=== PATIENT | male | born 1995 ===

== ENCOUNTER 2017-05-29 13:30 | Emergency (ER) | payer BC ==
[~2017-05-29] VITALS: Ht 175.3 cm; Wt 79.0 kg
[2017-05-29 13:34] VITALS: TEMP 36.5; Ht 175.3 cm; Wt 79.0 kg
[2017-05-29] MEDS ORDERED: ATOR-22 PO (14:13)
--- NOTE | 2017-05-29 15:03 | DIAGNOSTIC IMAGING REPORT ---
CHEST ONE VIEW PORTABLE CLINICAL HISTORY: 21 years-old Male presenting with sob . TECHNIQUE: Portable upright AP view of the chest was obtained. COMPARISON: None. FINDINGS: Cardiomediastinal silhouette normal. Lungs and pleural spaces clear. Osseous changes suggested in the right bony glenoid. No convincing evidence of fracture. Upper abdomen normal. IMPRESSION: 1. No acute cardiopulmonary disease. Electronically signed by: Wu Braxton M.D. 05/29/2017 3:02 PM Dictated Date/Time: 05/29/2017 3:01 PM
[2017-05-29 15:15] LABS: BASO % 0.2 %; BASO ABS # 0.01 K/uL (0-0.2); EOS ABS # 0.05 K/uL (0-0.5); HEMATOCRIT 43.2 % (42-52); HEMOGLOBIN 14.8 g/dL (14.0-18.0); IG# 0.01 K/uL (0.00-0.02); LYMPH % 27.9 %; LYMPH ABS # 1.35 K/uL (1.2-3.4); MEAN CELL VOLUME 93.5 fL (80-100); MEAN CORPUSCULAR HGB CONC 34.3 g/dl (32-36); MEAN PLATELET VOLUME 9.4 fL (7.4-10.4); MONO % 11.6 %; MONO ABS # 0.56 K/uL (0.11-0.59); NEUT % 59.1 %; NEUT ABS # 2.86 K/uL (1.4-6.5); PLATELET COUNT 250 K/uL (130-400); RED CELL DISTRIBUTION WIDTH CV 12.2 % (11.5-14.5); RED CELL DISTRIBUTION WIDTH SD 41.5 fL (36.4-46.3); WHITE BLOOD COUNT 4.84 K/uL (4.8-10.8)
[2017-05-29 15:29] LABS: POTASSIUM 3.9 mmol/L (3.5-5.1); SODIUM 137 mmol/L (136-145)
[2017-05-29 15:33] LABS: ALBUMIN 4.1 gm/dl (3.4-5.0); ALT/SGPT 28 U/L (12-78); AST/SGOT 32 U/L (15-37); BLOOD UREA NITROGEN 13 mg/dl (7-18); CALCIUM 8.9 mg/dl (8.5-10.1); CARBON DIOXIDE 29 mmol/L (21-32); CREATININE 0.97 mg/dl (0.60-1.40); GLUCOSE 112 mg/dl (70-99)
[2017-05-29 15:43] LABS: ALKALINE PHOSPHATASE 76 U/L (45-117); TOTAL PROTEIN 7.5 gm/dl (6.4-8.2)
[2017-05-29] MEDS ORDERED: LORA-741 PO (16:35)
[2017-05-29 16:43] VITALS: BP 120/55; PULSE 52; O2SAT 95
--- NOTE | 2017-05-29 16:58 | EMERGENCY ROOM VISIT NOTE ---
History Report prepared by Jose: Marva Mojica Under the Supervision of: Dr. Jayy Oliver D.O. First contact with patient: 14:13 Chief Complaint: ANXIETY Stated Complaint: LIGHTHEADED; DIZZY; ANXIETY History of Present Illness The patient is a 21 year old male who presents to the Emergency Room with complaints of worsening anxiety starting 3 weeks ago. The patient has a history of anxiety which he is usually able to manage without medications. Over the past 3 weeks, he has experienced palpitations, SOB, and lightheadedness when he goes to the gym. These symptoms are making him feel more anxious. He has these symptoms sometimes during the middle of his workout and sometimes while he is warming up. He has never had these symptoms before with going to the gym. The symptoms resolve after he returns home and relaxes. Over the past couple of days , he has been experiencing this even without going to the gym. He experienced these symptoms when going out with his friends this weekend. He denies any tingling in his hands or feet. Patient denies diabetes, hypertension, CAD, history of sudden at a young age, and smoking. Patient denies swelling of calves, history of immobilization or recent surgery, prior history of DVT, hemoptysis, history of malignancy, history of smoking, or control/ estrogen use. He traveled to [place] 1 month ago. He admits to alcohol use on the weekends. He denies any other drug use. He denies any thoughts of hurting himself or others. Source of History: patient Onset: 3 weeks ago Position: other (mental health) Quality: other (anxiety) Timing: worsening Modifying Factors (Worsening): other (going to the gym) Associated Symptoms: + SOB Note: Pt reports palpitations, lightheadedness. Review of Systems See HPI for pertinent positives & negatives. A total of 10 systems reviewed and were otherwise negative. Past Medical & Surgical Medical Problems: (1) High cholesterol Family History Hypertension Social History Smoking Status: Former Smoker Occupation Status: [employer] student Current/Historical Medications Scheduled Atorvastatin (Lipitor), 20 MG PO DAILY Lorazepam (Ativan), 0.5 MG PO TID Allergies Coded Allergies: No Known Allergies (Unverified , 05/29/17) Physical Exam Vital Signs Date Time Temp Pulse Resp B/P (MAP) Pulse Ox O2 Delivery O2 Flow Rate FiO2 05/29/17 16:43 52 16 120/55 95 05/29/17 15:08 51 16 133/66 97 Room Air 05/29/17 13:34 36.5 97 18 132/74 Room Air Physical Exam GENERAL: Sitting up in bed, alert, well appearing, well nourished, no distress, non-toxic EYE EXAM: normal conjunctiva. PERRL and EOM's grossly intact. OROPHARYNX: no exudate, no erythema, lips, buccal mucosa, and tongue normal and mucous membranes are moist NECK: supple, no nuchal rigidity, no adenopathy, non-tender LUNGS: Clear to auscultation. Normal chest wall mechanics HEART: no murmurs, S1 normal and S2 normal ABDOMEN: abdomen soft, non-tender, normo-active bowel sounds, no masses, no rebound or guarding. BACK: Back is symmetrical on inspection and there is no deformity, no midline tenderness, no CVA tenderness. SKIN: no rashes and no bruising UPPER EXTREMITIES: upper extremities are grossly normal. Radial pulses equal bilaterally. LOWER EXTREMITIES: No pitting edema. Calves equal bilaterally. NEURO EXAM: Normal sensorium, cranial nerves II-XII grossly intact, normal speech, no gross weakness of arms, no gross weakness of legs. Medical Decision & Procedures ER Provider Diagnostic Interpretation: Radiology results as stated below per my review and the radiologist's interpretation: CHEST ONE VIEW PORTABLE CLINICAL HISTORY: 21 years-old Male presenting with sob . TECHNIQUE: Portable upright AP view of the chest was obtained. COMPARISON: None. FINDINGS: Cardiomediastinal silhouette normal. Lungs and pleural spaces clear. Osseous changes suggested in the right bony glenoid. No convincing evidence of fracture. Upper abdomen normal. IMPRESSION: 1. No acute cardiopulmonary disease. Electronically signed by: Wu Braxton M.D. 05/29/2017 3:02 PM Dictated Date/Time: 05/29/2017 3:01 PM Laboratory Results 05/29/17 15:01 Red Blood Count 4.62, Mean Corpuscular Volume 93.5, Mean Corpuscular Hemoglobin 32.0, Mean Corpuscular Hemoglobin Concent 34.3, Mean Platelet Volume 9.4, Neutrophils (%) (Auto) 59.1, Lymphocytes (%) (Auto) 27.9, Monocytes (%) (Auto) 11.6, Eosinophils (%) (Auto) 1.0, Basophils (%) (Auto) 0.2, Neutrophils # (Auto ) 2.86, Lymphocytes # (Auto) 1.35, Monocytes # (Auto) 0.56, Eosinophils # (Auto ) 0.05, Basophils # (Auto) 0.01 05/29/17 15:00 Test 05/29/17 14:30 05/29/17 15:00 05/29/17 15:01 Urine Color YELLOW Urine Appearance TURBID (CLEAR) Urine pH 7.5 (4.5-7.5) Urine Specific [place] 1.022 (1.000-1.030) Urine Protein NEG (NEG) Urine Glucose (UA) NEG (NEG) Urine Ketones NEG (NEG) Urine Occult Blood NEG (NEG) Urine Nitrite NEG (NEG) Urine Bilirubin NEG (NEG) Urine Urobilinogen NEG (NEG) Urine Leukocyte Esterase NEG (NEG) Urine WBC (Auto) 0 /hpf (0-5) Urine RBC (Auto) 0-4 /hpf (0-4) Urine Hyaline Casts (Auto) 0 /lpf (0-5) Urine Epithelial Cells (Auto) 0-5 /lpf (0-5) Urine Bacteria (Auto) NEG (NEG) Urine Opiates Screen NEG (NEG) Urine Methadone, Qualitative NEG (NEG) Urine Barbiturates NEG (NEG) Urine Phencyclidine (PCP) Level NEG (NEG) Ur Amphetamine/Methamphetamine NEG (NEG) MDMA (Ecstasy) Screen NEG (NEG) Urine Benzodiazepines Screen NEG (NEG) Urine Cocaine Metabolite NEG (NEG) Urine Marijuana (THC) NEG (NEG) D-Dimer 230 ug/L FEU (0-500) Anion Gap 4.0 mmol/L (3-11) Est Creatinine Clear Calc Drug Dose 120.5 ml/min Estimated GFR () 128.8 Estimated GFR (Non- 111.1 BUN/Creatinine Ratio 13.2 (10-20) Calcium Level 8.9 mg/dl (8.5-10.1) Total Bilirubin 0.6 mg/dl (0.2-1) Direct Bilirubin 0.1 mg/dl (0-0.2) Aspartate Amino Transf (AST/SGOT) 32 U/L (15-37) Alanine Aminotransferase (ALT/SGPT) 28 U/L (12-78) Alkaline Phosphatase 76 U/L (45-117) Troponin I < 0.015 ng/ml (0-0.045) Total Protein 7.5 gm/dl (6.4-8.2) Albumin 4.1 gm/dl (3.4-5.0) Thyroid Stimulating Hormone (TSH) 0.725 uIu/ml (0.300-4.500) White Blood Count 4.84 K/uL (4.8-10.8) Red Blood Count 4.62 M/uL (4.7-6.1) Hemoglobin 14.8 g/dL (14.0-18.0) Hematocrit 43.2 % (42-52) Mean Corpuscular Volume 93.5 fL (80-100) Mean Corpuscular Hemoglobin 32.0 pg (25-34) Mean Corpuscular Hemoglobin Concent 34.3 g/dl (32-36) Platelet Count 250 K/uL (130-400) Mean Platelet Volume 9.4 fL (7.4-10.4) Neutrophils (%) (Auto) 59.1 % Lymphocytes (%) (Auto) 27.9 % Monocytes (%) (Auto) 11.6 % Eosinophils (%) (Auto) 1.0 % Basophils (%) (Auto) 0.2 % Neutrophils # (Auto) 2.86 K/uL (1.4-6.5) Lymphocytes # (Auto) 1.35 K/uL (1.2-3.4) Monocytes # (Auto) 0.56 K/uL (0.11-0.59) Eosinophils # (Auto) 0.05 K/uL (0-0.5) Basophils # (Auto) 0.01 K/uL (0-0.2) RDW Standard Deviation 41.5 fL (36.4-46.3) RDW Coefficient of Variation 12.2 % (11.5-14.5) Immature Granulocyte % (Auto) 0.2 % Immature Granulocyte # (Auto) 0.01 K/uL (0.00-0.02) Ethyl Alcohol mg/dL < 3.0 mg/dl (0-3) Laboratory results per my review. ECG Per My Interpretation Indication: chest pain Rate (beats per minute): 53 Rhythm: sinus bradycardia Findings: no ectopy, other (normal axis) ED Course ED COURSE: Vital signs were reviewed and showed hypertension. The patients medical record was reviewed The above diagnostic studies were performed and reviewed. ED treatments and interventions as stated above. 1417: The patient was evaluated in room A5. A complete history and physical examination was performed. 1626: Upon reevaluation, the patient is feeling much better. I discussed my findings with the patient and he understands and agrees with the treatment plan. Based on the patients age, coexisting illnesses, exam and lab findings the decision to treat as an outpatient was made. The patient remained stable while under my care. The patient appeared well at the time of discharge. Medical Decision Differential diagnoses includes but is not limited to pneumonia, bronchitis, COPD/Asthma exacerbation, pneumothorax, pulmonary embolism, congestive heart failure, acute coronary syndrome Patient is a 21-year-old male who presents to ER for anxiety. He notes that this is been there for the past several months but recently getting worse over the past 3 weeks. He notes it is generally worse with exercise. When he exercises he feels his heart rate increase and become short of breath and lightheaded. Over the past week however he has been getting the symptoms without exercise. He does have a history of hyperlipidemia. Labs were obtained and CBC along with BMP, LFTs, bilirubin, TSH and troponin were negative. D-dimer was negative. Tox was negative. Alcohol was negative. UA was negative. Chest x-ray unremarkable. EKG was benign. Patient was updated at bedside. He was seen by Chery from our psych team.. He is not a danger to himself. He denies any suicidal or homicidal ideations. He has good insight. I did not feel as though he was a danger to himself. We did give him resources and Ativan. Recommended not exercising following up with his PCP as an outpatient or S. Discussed with Pt concerning signs and symptoms to watch out for. Pt was instructed to follow up with their PCP and discussed with the patient their option to return to the ED at anytime for persistent or worsening symptoms. The appropriate anticipatory guidance and out-patient management, including indications for return to the emergency department, were explained at length to the patient and understood. Medication Reconcilliation Current Medication List: was personally reviewed by me Blood Pressure Screening Patient's blood pressure: Elevated blood pressure Blood pressure disposition: Elevated BP felt to be situational Impression Primary Impression: Chest pain Additional Impression: Acute anxiety Scribe Attestation The scribe's documentation has been prepared under my direction and personally reviewed by me in its entirety. I confirm that the note above accurately reflects all work, treatment, procedures, and medical decision making performed by me. Departure Information Dispostion Home / Self-Care Prescriptions Lorazepam (ATIVAN) 0.5 Mg Tab 0.5 MG PO TID for Anxiety/Agitation, #30 TAB Prov: Jayy Oliver U[place], DO 05/29/17 Referrals No Doctor, Assigned (PCP) Forms HOME CARE DOCUMENTATION FORM, IMPORTANT VISIT INFORMATION Patient Instructions Chest Pain - [facility], My [facility], TBI Anxiety Additional Instructions Please follow up with your primary care doctor with in the next 24 hours. Any worsening of your symptoms, please return to the ED immediately. This includes any fevers greater than 100.4, worsening pain, chest pain, any thoughts of self- harm, thoughts of harming anyone else, unable to carry on with her daily activities, shortness breath, persistent nausea, vomiting, unable to eat or drink, or any other concerning signs or symptoms from your standpoint. You were given medications during this visit that will inhibit your ability to drive, operate machinery and work (ativan). Please do NOT drive, operate machinery or work within 12hrs of taking this medication. Problem Qualifiers Primary Impression: Chest pain Chest pain type: unspecified Qualified Codes: R07.9 - Chest pain, unspecified
== END 2017-05-29 16:44 | disposition home or self-care (01) ==
LOC: C.EDB 13:32 → C.EDA 16:44
DX: R07.9 Chest pain, unspecified (principal); F41.9 Anxiety disorder, unspecified; Z87.891 Personal history of nicotine dependence